=== PATIENT | female | born 1995 | race Caucasian/White ===

== ENCOUNTER 2019-07-12 11:56 | Observation (INO) ==
[2019-07-12] MEDS ORDERED: SODIUM CHLORIDE 0.9% 1000ML 2,000 ML IV ONE (12:17)
[2019-07-12] MEDS ORDERED: LORazepam 0.5 MG/1 ML VIAL IV STA (12:24)
[2019-07-12 12:37] LABS: Basophils # (auto) 0.01 K/uL (0-0.2); Basophils % (auto) 0.1 %; Eosinophils # (auto) 0.03 K/uL (0-0.5); Eosinophils % (auto) 0.4 %; Hematocrit (blood only) 43.4 % (37-47); Hemoglobin 15.2 g/dL (12.0-16.0); Immature Granulocytes # (auto) 0.01 K/uL (0.00-0.02); Immature Granulocytes % (auto) 0.1 %; Lymphocytes # (auto) 0.86 K/uL (1.2-3.4); Lymphocytes % (auto) 11.2 %; Mean Corpuscular Hemoglobin 30.7 pg (25-34); Mean Corpuscular Volume 87.7 fL (80-100); Mean Platelet Volume 9.4 fL (7.4-10.4); Monocytes # (auto) 0.26 K/uL (0.11-0.59); Monocytes % (auto) 3.4 %; Neutrophils # (auto) 6.52 K/uL (1.4-6.5); Neutrophils % (auto) 84.8 %; Platelet Count 308 K/uL (130-400); RDW Coefficient of Variation 12.5 % (11.5-14.5); RDW Standard Deviation 39.9 fL (36.4-46.3); Red Blood Count 4.95 M/uL (4.2-5.4); White Blood Count 7.69 K/uL (4.8-10.8)
--- NOTE | 2019-07-12 12:38 | XRay Report ---
XR chest 1V portable CLINICAL HISTORY: Atypical chest pain COMPARISON STUDY: 07/14/2014 FINDINGS: The cardiac and mediastinal contours are normal. There is no evidence of focal pulmonary co nsolidation. There is no evidence of failure. No pleural effusions are visualized.[ IMPRESSION: No active disease in the chest. ACT 112: Negative or not required by law. Electronically signed by: Surjit Irene M.D. 07/12/2019 12:37 PM
[2019-07-12 12:46] LABS: D Dimer < 190 ug/L FEU (0-500)
[2019-07-12 12:57] LABS: Alanine Aminotransferase 18 U/L (12-78); Albumin Level 4.4 gm/dl (3.4-5.0); Aspartate Aminotransferase 13 U/L (15-37); BUN Creatinine Ratio 20.1 (10-20); Blood Urea Nitrogen 16 mg/dl (7-18); Calcium 9.6 mg/dl (8.5-10.1); Carbon Dioxide 24 mmol/L (21-32); Chloride 106 mmol/L (98-107); Creatinine Clr Calc Pharmacy 96.4 ml/min; Est GFR (Non-African American) 109.6; Glucose 91 mg/dl (70-99); Lipase 67 U/L (73-393); Magnesium 2.3 mg/dl (1.8-2.4); Sodium 137 mmol/L (136-145)
[2019-07-12 13:04] LABS: Pregnancy Test, Serum Negative (Negative)
[2019-07-12 13:08] LABS: Albumin Globulin Ratio 1.2 (0.9-2); Alkaline Phosphatase 77 U/L (45-117); Bilirubin,Total 2.4 mg/dl (0.2-1); Globulin 3.7 gm/dl (2.5-4.0); Phosphorus 2.7 mg/dl (2.5-4.9); Thyroid Stimulating Hormone 0.845 uIu/ml (0.300-4.500); Total Protein 8.1 gm/dl (6.4-8.2); Troponin I < 0.015 ng/ml (0-0.045)
[2019-07-12] MEDS ORDERED: GI COCKTAIL ED USE PO ONE (13:23)
[2019-07-12] MEDS ORDERED: LORazepam 1 MG TAB SL STA ×2 (14:09→14:41)
[2019-07-12] MEDS ORDERED: SODIUM CHLORIDE 0.9% 1000ML 1,000 ML IV ONE (14:27)
[2019-07-12 14:35] LABS: Bilirubin Direct 0.3 mg/dl (0-0.2)
--- NOTE | 2019-07-12 20:25 | History & Physical Report ---
Date of Service July 12, 2019 Assessment & Plan (1) Atypical chest pain: Admits to PCU on telemetry. Monitor vital signs every 4 hours Follow-up troponin x3 with EKG TTE pending Consult cardiology for nonspecific T wave changes DVT prophylaxis teds and SCDs Gentle IV fluid hydration Full code Present on Admission?: Yes (2) Gastroesophageal reflux disease: Continue famotidine 20 mg p.o. daily as needed Present on Admission?: Yes (3) Multiple sclerosis: We will consult [facility] neurology. Dr. Romero is patient primary neurologist. We will consult neurologist on-call. Hold ocrelizumab 30 mg IV every 6 hours. Present on Admission?: Yes History of Present Illness Chief Complaint: Chest pain Primary Care Provider: Perfecto Anderson DO The patient is a 24 years old female who was recently diagnosed in April 2018 with multiple sclerosis and started on treatment with Ocrevus in early June. Patient already had 2 treatments and the last treatment being 1 week ago. Patient is treated by neurologist at [facility]. Patient describes palpitations and chest pain that was so severe that she had to lay down on the floor to be able to bear the pain. Patient states that nothing helps with her pain. She admits having anxiety disorder but this what occurred yesterday and today was different. Patient states that chest was crushing and lasted for more than 30 minutes. Patient states that chest pain was intermittent. It did not radiate anywhere. Patient denies any substance abuse. Patient denies drinking coffee or use of power drinks. Patient denies fever, chills, abdominal pain, shortness of breath, frequency, urgency. EKG shows sinus tachycardia 128 bpm with nonspecific T wave abnormalities in the inferior and anterolateral leads. Labs are reviewed: Sodium 137, potassium 4, chloride 106, carbon dioxide 24, anion gap 7, BUN 16, creatinine 0.77, GFR 109.6, glucose 91, calcium 9.6, phosphorus 2.7, magnesium 2.3, total bilirubin 2.4, direct bilirubin 0.3, AST 13, ALT 18, alkaline phosphatase 77, troponin 0.015, total protein 8.1, albumin 4.4, globulin 3.7, TSH 0.845, beta-hCG negative. Chest x- ray shows the cardiac and mediastinal contours are normal. There is no evidence of focal pulmonary consolidation. There is no evidence of failure. No pleural effusion are visualized no active disease in the chest. I decision was made to admit patient for observation for the chest pain and to rule out acute coronary syndrome. Allergies Allergy/AdvReac Type Severity Reaction Status Date / Time No Known Drug Allergies AdvReac Unknown Verified 07/12/19 12:43 Home Medications Home Medications Medication Instructions Recorded Confirmed Type famotidine 20 mg PO DAILY PRN 04/25/19 07/12/19 History ocrelizumab [Ocrevus] 30 mg IV Q6M 07/12/19 07/12/19 History prochlorperazine maleate 10 mg PO QID PRN #14 tab 07/12/19 Rx Past Med/Surg History Medical History Anxiety (Acute) Panic attacks (Acute) Surgical History [place] teeth removed (Acute) Social History Preferred Language: Samoan Feels Safe at Home: Yes Smoking Status: Never smoker Review of Systems Review of Systems: All systems reviewed & are unremarkable except as noted in HPI & below Physical Exam Constitutional: WD/WN, vitals as above well developed and + ill appearing Eyes: PERRL, conjunctivae normal, anicteric sclerae ENMT: external ear and nose normal, oropharynx normal Neck: trachea midline, no thyromegaly Respiratory: normal respiratory effort, lungs clear to auscultation Cardiovascular: Rate/Rhythm: + tachycardic Heart Sounds: normal S1 and normal S2 Vessels: dorsalis pedis pulses present Gastrointestinal (Abdomen): normal bowel sounds, soft, nontender, no hepatosplenomegaly Musculoskeletal: no cyanosis or clubbing, extremities motor strength 5/5 Skin: no rashes, warm and dry Neurologic: patellar DTR's 2+ bilat, sensation intact Psychiatric: A+Ox3, euthymic affect Lymphatic: no cervical or axillary lymphadenopathy Results & Data Vital Signs (Past 12 Hours) Vital Signs Temp Pulse Pulse Resp BP BP Pulse Ox 07/12/19 19:00 119 H 23 108/66 99 07/12/19 18:30 128 H 24 114/65 99 07/12/19 18:00 118 H 22 113/63 98 07/12/19 17:30 119 H 23 117/65 98 07/12/19 17:00 133 H 25 H 113/67 99 07/12/19 16:30 134 H 24 116/71 99 07/12/19 15:30 117 H 20 120/83 100 07/12/19 15:00 118 H 25 H 123/74 100 07/12/19 14:30 124 H 23 121/75 99 07/12/19 14:04 22 120/72 100 07/12/19 13:30 111 H 23 120/79 100 07/12/19 13:00 110 H 16 119/79 100 07/12/19 12:41 99 H 26 H 134/71 100 07/12/19 12:40 101 H 17 134/71 100 07/12/19 12:39 100 07/12/19 11:58 36.4 C L 121 H 18 124/81 99 Code Status & VTE Plan Code Status Full code VTE Prophylaxis Plan VTE Prophylaxis will be ordered: Yes PG Care Time/CCT Total # of Minutes Spent Total Time Spent with Patient: Total time spent is greater than 50% in coordination of care (as documented) at patient's floor/unit and/or counseling patient: (1) Gastroesophageal reflux disease Esophagitis presence: without esophagitis Qualified Code(s): K21.9 - Gastro- esophageal reflux disease without esophagitis
--- NOTE | 2019-07-12 20:56 | Emergency Department Note ---
Entered by Vannesa Sun acting as a scribe for Ulices Cai MD History of Present Illness General Chief complaint: Chest Pain Stated complaint: nausea - dizzy - chest pain - Time Seen by Provider: 07/12/19 12:07 Source: patient and family History of Present Illness Provider complaint: chest pain Onset (ago): day(s) 1 Location: chest Maximum Pain Intensity: 7 Quality: + other (pressure) Relieved By: + none Associated symptoms: + nausea/vomiting (+nausea, -vomiting) and + other (- urinary symptoms, +lightheadedness, +abdominal pain) The patient is a 24 year old female who presents to the Emergency Room with complaints of chest pain which worsened last night. The patient reports that she was diagnosed with MS in April and was placed on Prednisone. She reports that she has been experiencing chest pressure since. She notes that last night her pain worsened. She states that she had nausea and felt lightheaded. The patient states that she feels that her heart has been beating different since April and it became more prominent last night. She reports that she has a history of reflux and panic attacks. She states that she had fries last night several hours before bed. The patient mentions that she was experiencing abdominal pain 2 day ago. She denies any vomiting or urinary symptoms. She denies any previous blood clots. The patients mother reports that she was recently placed on new medications for MS 2 weeks ago. Home Medications Home Medications Medication Instructions Recorded Confirmed Type famotidine 20 mg PO DAILY PRN 04/25/19 07/12/19 History ocrelizumab [Ocrevus] 30 mg IV Q6M 07/12/19 07/12/19 History prochlorperazine maleate 10 mg PO QID PRN #14 tab 07/12/19 Rx Allergies Allergy/AdvReac Type Severity Reaction Status Date / Time No Known Drug Allergies AdvReac Unknown Verified 07/12/19 12:43 Past Med/Surg History Medical History Anxiety (Acute) Panic attacks (Acute) Surgical History [place] teeth removed (Acute) Family History Other Coronary heart disease Social History Preferred Language: Divehi Feels Safe at Home: Yes Smoking Status: Never smoker Review of Systems See HPI for pertinent positives & negatives. and A total of 10 systems reviewed and were otherwise negative Physical Exam Vital Signs Vital Signs - 24 hr 07/12/19 11:58 07/12/19 12:39 07/12/19 12:40 Temperature 36.4 C L Temperature Source Oral Pulse Rate 121 H 101 H Pulse Rate [Apical] Pulse Rate from SpO2 Sensor 104 H Respiratory Rate 18 17 Respiratory Effort / Characteristics Non-Labored Spontaneous Respiratory Depth Normal Respiratory Pattern Regular Blood Pressure 124/81 134/71 Blood Pressure [Left Arm] Blood Pressure Mean 95 92 Blood Pressure Mean [Left Arm] Blood Pressure Position Sitting Pulse Oximetry 99 100 100 Oxygen Delivery Method Room Air Room Air Sepsis Recent Fever Within 48 Hours No Sepsis New/Unexplained Change in Mental Status No Sepsis Action Taken by Nursing No Action Required 07/12/19 12:41 07/12/19 13:00 07/12/19 13:30 Temperature Temperature Source Pulse Rate 110 H 111 H Pulse Rate [Apical] 99 H Pulse Rate from SpO2 Sensor 109 H 111 H Respiratory Rate 26 H 16 23 Respiratory Effort / Characteristics Respiratory Depth Respiratory Pattern Blood Pressure 119/79 120/79 Blood Pressure [Left Arm] 134/71 Blood Pressure Mean 87 93 Blood Pressure Mean [Left Arm] 92 Blood Pressure Position Pulse Oximetry 100 100 100 Oxygen Delivery Method Room Air Sepsis Recent Fever Within 48 Hours Sepsis New/Unexplained Change in Mental Status Sepsis Action Taken by Nursing 07/12/19 14:04 07/12/19 14:30 07/12/19 15:00 Temperature Temperature Source Pulse Rate 124 H 118 H Pulse Rate [Apical] Pulse Rate from SpO2 Sensor 126 H 127 H 120 H Respiratory Rate 22 23 25 H Respiratory Effort / Characteristics Respiratory Depth Respiratory Pattern Blood Pressure 120/72 121/75 123/74 Blood Pressure [Left Arm] Blood Pressure Mean 86 88 84 Blood Pressure Mean [Left Arm] Blood Pressure Position Pulse Oximetry 100 99 100 Oxygen Delivery Method Sepsis Recent Fever Within 48 Hours Sepsis New/Unexplained Change in Mental Status Sepsis Action Taken by Nursing 07/12/19 15:30 07/12/19 16:30 07/12/19 17:00 Temperature Temperature Source Pulse Rate 117 H 134 H 133 H Pulse Rate [Apical] Pulse Rate from SpO2 Sensor 114 H 133 H 132 H Respiratory Rate 20 24 25 H Respiratory Effort / Characteristics Respiratory Depth Respiratory Pattern Blood Pressure 120/83 116/71 113/67 Blood Pressure [Left Arm] Blood Pressure Mean 90 79 74 Blood Pressure Mean [Left Arm] Blood Pressure Position Pulse Oximetry 100 99 99 Oxygen Delivery Method Sepsis Recent Fever Within 48 Hours Sepsis New/Unexplained Change in Mental Status Sepsis Action Taken by Nursing 07/12/19 17:30 07/12/19 18:00 07/12/19 18:30 Temperature Temperature Source Pulse Rate 119 H 118 H 128 H Pulse Rate [Apical] Pulse Rate from SpO2 Sensor 119 H 117 H Respiratory Rate 23 22 24 Respiratory Effort / Characteristics Respiratory Depth Respiratory Pattern Blood Pressure 117/65 113/63 114/65 Blood Pressure [Left Arm] Blood Pressure Mean 81 71 81 Blood Pressure Mean [Left Arm] Blood Pressure Position Pulse Oximetry 98 98 99 Oxygen Delivery Method Room Air Sepsis Recent Fever Within 48 Hours Sepsis New/Unexplained Change in Mental Status Sepsis Action Taken by Nursing 07/12/19 19:00 07/12/19 19:30 07/12/19 20:00 Temperature Temperature Source Pulse Rate 119 H 126 H 123 H Pulse Rate [Apical] Pulse Rate from SpO2 Sensor Respiratory Rate 23 20 23 Respiratory Effort / Characteristics Respiratory Depth Respiratory Pattern Blood Pressure 108/66 109/61 101/68 Blood Pressure [Left Arm] Blood Pressure Mean 82 73 81 Blood Pressure Mean [Left Arm] Blood Pressure Position Pulse Oximetry 99 100 99 Oxygen Delivery Method Room Air Sepsis Recent Fever Within 48 Hours Sepsis New/Unexplained Change in Mental Status Sepsis Action Taken by Nursing GENERAL: Awake, alert, anxious appearing, in no distress HENT: Normocephalic, atraumatic. Oropharynx with dry mucous membranes and otherwise unremarkable. . EYES: Normal conjunctiva. Sclera non-icteric. NECK: Supple. No nuchal rigidity. FROM. No JVD. RESPIRATORY: CTAB CARDIAC: Tachycardic rate, normal rhythm. Extremities warm and well perfused. Pulses equal. ABDOMEN: Soft, non-distended. Mild epigastric discomfort without discrete tenderness to palpation. No rebound or guarding. No masses. RECTAL: Deferred. MUSCULOSKELETAL: Chest examination reveals no tenderness. The back is symmetrical on inspection without obvious abnormality. There is no CVA tenderness to palpation. No joint edema. LOWER EXTREMITIES: Calves are equal size bilaterally and non-tender. No edema. No discoloration. NEURO: Normal sensorium. No sensory or motor deficits noted. SKIN: No rash or jaundice noted. Course Course 1211: The patient was evaluated in room C10, and a complete history and physical examination were performed. 1355: Upon reevaluation, the patient appeared to have improvement of her symptoms. I discussed today's findings with her. She verbalized agreement of the treatment plan. She was discharged home. 181: I reviewed the patient's case with Dr. Romero- [facility] Hospitalist. He will evaluate the patient for further management. Administered Medications Discontinued Medications Al Hydrox/Mg Hydrox/Simethicone () 1 dose PO ONE ONE Stop: 07/12/19 13:24 Last Admin: 07/12/19 13:45 Dose: 1 dose Documented by: [id number] Sodium Chloride (Nss 1000ml) 2,000 mls @ 999 mls/hr IV .Q2H1M ONE Stop: 07/12/19 14:17 Last Infusion: 07/12/19 14:37 Dose: 0 mls/hr Documented by: [id number] Admin: 07/12/19 12:36 Dose: 999 mls/hr Documented by: [id number] Lorazepam (Ativan) 0.5 mg in 1 mls @ 1 mls/min IV NOW STA Stop: 07/12/19 12:25 Last Admin: 07/12/19 12:37 Dose: 1 mls/min Documented by: [id number] Sodium Chloride (Nss 1000ml) 1,000 mls @ 999 mls/hr IV .Q1H1M ONE Stop: 07/12/19 15:27 Last Infusion: 07/12/19 15:48 Dose: 0 mls/hr Documented by: [id number] Admin: 07/12/19 14:47 Dose: 999 mls/hr Documented by: [id number] Lorazepam (Ativan) 0.5 mg SL NOW STA Stop: 07/12/19 14:10 Last Admin: 07/12/19 14:49 Dose: Not Given Documented by: [id number] Lorazepam (Ativan) 1 mg SL NOW STA Stop: 07/12/19 14:42 Last Admin: 07/12/19 14:47 Dose: 1 mg Documented by: [id number] Medical Decision Making Differential Diagnosis Differential diagnosis: Etiologies such as cardiac ischemia, aortic dissection, pulmonary embolism, pneumonia, pneumothorax, musculoskeletal, infections, pericarditis, myocarditis, esophageal rupture, gastrointestinal, as well as others were entertained. Medical Records Attestation: I reviewed the patient's medical records. Home Medications Current Medication List: was personally reviewed by me Laboratory Data Attestation: I reviewed the patient's lab results. Result diagrams: 07/12/19 12:30 07/12/19 12:30 Lab Results 07/12/19 07/12/19 07/12/19 Range/Units 12:30 12:30 12:30 WBC 7.69 (4.8-10.8) K/uL RBC 4.95 (4.2-5.4) M/uL Hgb 15.2 (12.0-16.0) g/dL Hct 43.4 (37-47) % MCV 87.7 (80-100) fL MCH 30.7 (25-34) pg MCHC 35.0 (32-36) g/dL RDW Std Deviation 39.9 (36.4-46.3) fL RDW Coeff of Magdy 12.5 (11.5-14.5) % Plt Count 308 (130-400) K/uL MPV 9.4 (7.4-10.4) fL Immature Gran % (Auto) 0.1 % Neut % (Auto) 84.8 % Lymph % (Auto) 11.2 % [place] % (Auto) 3.4 % Eos % (Auto) 0.4 % Baso % (Auto) 0.1 % Immature Gran # (Auto) 0.01 (0.00-0.02) K/uL Neut # (Auto) 6.52 H (1.4-6.5) K/uL Lymph # (Auto) 0.86 L (1.2-3.4) K/uL [place] # (Auto) 0.26 (0.11-0.59) K/uL Eos # (Auto) 0.03 (0-0.5) K/uL Baso # (Auto) 0.01 (0-0.2) K/uL D-Dimer < 190 (0-500) ug/L FEU Sodium 137 (136-145) mmol/L Potassium 4.0 (3.5-5.1) mmol/L Chloride 106 (98-107) mmol/L Carbon Dioxide 24 (21-32) mmol/L Anion Gap 7.0 (3-11) BUN 16 (7-18) mg/dl Creatinine 0.77 (0.6-1.2) mg/dl Est Cr Clr Drug Dosing 96.4 ml/min Est GFR ( Amer) 127.0 Est GFR (Non-Af Amer) 109.6 BUN/Creatinine Ratio 20.1 H (10-20) Glucose 91 (70-99) mg/dl Calcium 9.6 (8.5-10.1) mg/dl Phosphorus 2.7 (2.5-4.9) mg/dl Magnesium 2.3 (1.8-2.4) mg/dl Total Bilirubin 2.4 H (0.2-1) mg/dl Direct Bilirubin 0.3 H (0-0.2) mg/dl AST 13 L (15-37) U/L ALT 18 (12-78) U/L Alkaline Phosphatase 77 (45-117) U/L Troponin I < 0.015 (0-0.045) ng/ml Total Protein 8.1 (6.4-8.2) gm/dl Albumin 4.4 (3.4-5.0) gm/dl Globulin 3.7 (2.5-4.0) gm/dl Albumin/Globulin Ratio 1.2 (0.9-2) Lipase 67 L (73-393) U/L TSH 0.845 (0.300-4.500) uIu/ml HCG, Qual (Negative) 07/12/19 Range/Units 12:30 WBC (4.8-10.8) K/uL RBC (4.2-5.4) M/uL Hgb (12.0-16.0) g/dL Hct (37-47) % MCV (80-100) fL MCH (25-34) pg MCHC (32-36) g/dL RDW Std Deviation (36.4-46.3) fL RDW Coeff of Magdy (11.5-14.5) % Plt Count (130-400) K/uL MPV (7.4-10.4) fL Immature Gran % (Auto) % Neut % (Auto) % Lymph % (Auto) % [place] % (Auto) % Eos % (Auto) % Baso % (Auto) % Immature Gran # (Auto) (0.00-0.02) K/uL Neut # (Auto) (1.4-6.5) K/uL Lymph # (Auto) (1.2-3.4) K/uL [place] # (Auto) (0.11-0.59) K/uL Eos # (Auto) (0-0.5) K/uL Baso # (Auto) (0-0.2) K/uL D-Dimer (0-500) ug/L FEU Sodium (136-145) mmol/L Potassium (3.5-5.1) mmol/L Chloride (98-107) mmol/L Carbon Dioxide (21-32) mmol/L Anion Gap (3-11) BUN (7-18) mg/dl Creatinine (0.6-1.2) mg/dl Est Cr Clr Drug Dosing ml/min Est GFR ( Amer) Est GFR (Non-Af Amer) BUN/Creatinine Ratio (10-20) Glucose (70-99) mg/dl Calcium (8.5-10.1) mg/dl Phosphorus (2.5-4.9) mg/dl Magnesium (1.8-2.4) mg/dl Total Bilirubin (0.2-1) mg/dl Direct Bilirubin (0-0.2) mg/dl AST (15-37) U/L ALT (12-78) U/L Alkaline Phosphatase (45-117) U/L Troponin I (0-0.045) ng/ml Total Protein (6.4-8.2) gm/dl Albumin (3.4-5.0) gm/dl Globulin (2.5-4.0) gm/dl Albumin/Globulin Ratio (0.9-2) Lipase (73-393) U/L TSH (0.300-4.500) uIu/ml HCG, Qual Negative (Negative) Imaging Data Radiologist's Impression: Radiology results as stated below per my review and the radiologist's interpretation: XR chest 1V portable CLINICAL HISTORY: Atypical chest pain COMPARISON STUDY: 07/14/2014 FINDINGS: The cardiac and mediastinal contours are normal. There is no evidence of focal pulmonary consolidation. There is no evidence of failure. No pleural effusions are visualized.[ IMPRESSION: No active disease in the chest. ACT 112: Negative or not required by law. Electronically signed by: Surjit Irnee M.D. 07/12/2019 12:37 PM ECG Data Attestation: I personally reviewed and interpreted this ECG as follows: Indication: + chest pain Rate (beats per minute): 109 Rhythm: + sinus tachycardia ECG Intervals/blocks: + Normal QRS (78) and + Normal QT-c (452) ECG [place]: + Normal ECG ST segments: no ST depression and no ST elevation Blood Pressure Blood Pressure Findings: Low blood pressure Blood Pressure Disposition: did not require urgent referral MDM Narrative The patient is a pleasant 24-year-old woman with a past medical history of diagnosis of MS recently initiating monoclonal antibody treatment with injection in June and again last week as well as a 5-day high-dose oral steroid course in April upon her diagnosis now with worsening of her constant chest pain with associated nausea, lightheadedness per HPI. Patient reports having increased indigestion and burping since her steroid course associated with her chest pain for which she has been put on Pepcid. However she does not feel her symptoms today are related to her reflux. On arrival the patient is uncomfortable in no acute distress, afebrile with heart rate in the 120s and otherwise with stable vital signs. Patient is anxious appearing. She is clinically dry appearing. Abdomen is benign with mild epigastric discomfort without discrete tenderness. Negative Bacon sign. EKG without overt acute ischemia. Chest x-ray negative for acute process. WBC, H/H and platelets within normal limits. Chemistry without acidosis. Total bilirubin 2.4 with direct bilirubin of 0.3. Otherwise, electrolytes and LFTs unremarkable. Troponin negative/undetectable. D-dimer negative. TSH within normal limits. The patient was given IV fluid hydration, Ativan and Pepcid with GI cocktail with subsequent improvement in her heart rate to the 90s-100s and while she did report persistence of her chest pain she did feel this was improved back to her chronic sensation she has felt for the past month. The patient was being pr epared for discharge however heart rate then became elevated again to the 130s and so she was reevaluated with repeat EKG which demonstrates sinus tachycardia. She was given IV fluid hydration and additional Ativan with eventual improvement in heart rate but still labile with heart rate in the 110s but easily increasing to the 120s even while sleeping. Did discuss the case with Dr. Morales, [facility] neurology on-call as we were unable to contact the patient's primary neurologist, Dr. Ruelas. The persistent of her symptoms with associated continued sinus tachycardia we agree reasonable to admit the patient for further monitoring. Suggest likely would benefit from GI consultation given her symptoms did begin after her high-dose oral steroid which could have provoked esophagitis. Patient with considerations could be pain related to her previously identified thoracic MS lesions seen on MRI. Case was discussed with Dr. Romero, [facility] hospitalist, who evaluate the patient for admission. Observation note: Indication: Chest pain Patient, with Family History CAD, was first seen at 1200 hrs and the observation time began at 1200 hrs and was necessary in order to determine movement and symptoms and response to treatment and avoid unnecessary admission . Upon re- evaluation, 6 hours of observation revealed that the patient should be admitted for further monitoring and evaluation of her symptoms. Disposition date and time 07/12/2019 @ 1800. Impression & Plan Atypical chest pain, Gastroesophageal reflux disease, Multiple sclerosis, Sinus tachycardia Discharge Plan Visit Data Chief Complaint: Chest Pain Stated Complaint: nausea - dizzy - chest pain - ED Provider: Ulices Cai Discharge Problem: Atypical chest pain, Gastroesophageal reflux disease, Multiple sclerosis, Sinus tachycardia Patient Disposition: Being Evaluated by Hospitalist Condition: Good Discharge Instructions Krames/Other Patient Handouts: Anxiety Body Response, ED Chest Pain Atypical Unkn Cause, ED Hyperventilation Syndrome, ED Panic Attack Activity Restrictions/Additional Instructions: Please follow up with your primary care physician in the next 1-3 days for re- evaluation. The cause of your symptoms is not definitive at this time but could be related to acid reflux as well as a component of your history of anxiety. Otherwise, your exam, EKG, chest xray, and lab results including a negative/undetectable troponin (heart enzyme) and negative d-dimer did not show signs of an emergent condition at this time. Continue your Pepcid as prescribed. [id number] Mylanta for additional acid relief as needed. Compazine as needed for nausea. Drink plenty of fluids to ensure hydration. Return to the emergency department for worsening symptoms as described in the accompanying instructions. Prescriptions Prescriptions: New prochlorperazine maleate 10 mg tablet 10 mg PO QID PRN (Reason: nausea and vomiting) Qty: 14 RF: 0 No Action famotidine 20 mg Tablet 20 mg PO DAILY PRN (Reason: Gi Upset) RF: 0 Ocrevus 30 mg/mL Solution 30 mg IV Q6M RF: 0 Referrals Referrals: Perfecto Anderson DO [Primary Care Provider] - Discharge Problem: Gastroesophageal reflux disease Qualifiers: Esophagitis presence: without esophagitis Qualified Code(s): K21.9 - Gastro- esophageal reflux disease without esophagitis The scribe's documentation has been prepared under my direction and personally reviewed by me in its entirety. I confirm that the note above accurately reflects all work, treatment, procedures, and medical decision making performed by me.
[2019-07-12] MEDS ORDERED: ONDANSETRON INJ 2 MG/ML 2 ML VIAL IV PRN (21:26)
[2019-07-12] MEDS ORDERED: POLYETHYLENE (MIRALAX) 17 GM PACK PO PRN (21:26)
[2019-07-12] MEDS ORDERED: ALUMINUM/MAGNESIUM SUSP 30 ML UDC PO PRN (21:26)
[2019-07-12] MEDS ORDERED: OCRELIZUMAB IV SCH (21:26)
[2019-07-12] MEDS ORDERED: NITROGLYCERIN SL 0.4 MG/TAB TAB SL PRN (21:26)
[2019-07-12] MEDS ORDERED: FAMOTIDINE 20 MG TAB PO PRN (21:26)
[2019-07-12] MEDS ORDERED: MAGNESIUM HYDROXIDE SUSP 30 ML UDC PO PRN (21:26)
[2019-07-12] MEDS ORDERED: LORazepam 1 MG TAB PO PRN (21:26)
[2019-07-12] MEDS ORDERED: ACETAMINOPHEN 325 MG TAB PO PRN (21:26)
[2019-07-12] MEDS: SODIUM CHLORIDE 0.9% 1000ML 1,000 ML IV SCH (22:33)
[2019-07-12] MEDS: ASPIRIN 81 MG ECTAB PO SCH (22:33)
--- NOTE | 2019-07-12 23:36 | Electrocardiogram Report ---
Test Reason : Blood Pressure : / mmHG Vent. Rate : 109 BPM Atrial Rate : 109 BPM P-R Int : 132 ms QRS Dur : 078 ms QT Int : 336 ms P-R-T Axes : 069 085 054 degrees QTc Int : 452 ms Sinus tachycardia Possible Left atrial enlargement Borderline ECG No previous ECGs available Confirmed by Tigre Walker ([id number]) on 07/12/2019 11:36:06 PM Referred By: Confirmed By:Tigre Walker
--- NOTE | 2019-07-12 23:39 | Electrocardiogram Report ---
Test Reason : Blood Pressure : / mmHG Vent. Rate : 128 BPM Atrial Rate : 128 BPM P-R Int : 146 ms QRS Dur : 072 ms QT Int : 304 ms P-R-T Axes : 060 076 052 degrees QTc Int : 443 ms Sinus tachycardia Possible Left atrial enlargement Nonspecific T wave abnormality Abnormal ECG When compared with ECG of 12-JUL-2019 12:07, Nonspecific T wave abnormality now evident in Inferior leads Nonspecific T wave abnormality now evident in Anterolateral leads Confirmed by Tigre Walker ([id number]) on 07/12/2019 11:38:44 PM Referred By: REFERRED SELF Confirmed By:Tigre Walker
[2019-07-13 03:23] LABS: Basophils # (auto) 0.01 K/uL (0-0.2); Basophils % (auto) 0.2 %; Eosinophils # (auto) 0.09 K/uL (0-0.5); Eosinophils % (auto) 2.1 %; Hematocrit (blood only) 38.4 % (37-47); Hemoglobin 12.9 g/dL (12.0-16.0); Immature Granulocytes # (auto) 0.02 K/uL (0.00-0.02); Immature Granulocytes % (auto) 0.5 %; Lymphocytes # (auto) 1.63 K/uL (1.2-3.4); Lymphocytes % (auto) 37.3 %; Mean Corpuscular Hemoglobin 30.1 pg (25-34); Mean Corpuscular Hgb Conc 33.6 g/dL (32-36); Mean Corpuscular Volume 89.7 fL (80-100); Monocytes # (auto) 0.77 K/uL (0.11-0.59); Monocytes % (auto) 17.6 %; Neutrophils # (auto) 1.85 K/uL (1.4-6.5); Neutrophils % (auto) 42.3 %; Platelet Count 268 K/uL (130-400); RDW Coefficient of Variation 12.6 % (11.5-14.5); RDW Standard Deviation 40.9 fL (36.4-46.3); Red Blood Count 4.28 M/uL (4.2-5.4); White Blood Count 4.37 K/uL (4.8-10.8)
[2019-07-13 04:02] LABS: Alanine Aminotransferase 16 U/L (12-78); Aspartate Aminotransferase 10 U/L (15-37); BUN Creatinine Ratio 8.3 (10-20); Bilirubin,Total 1.2 mg/dl (0.2-1); Blood Urea Nitrogen 5 mg/dl (7-18); Calcium 8.4 mg/dl (8.5-10.1); Carbon Dioxide 27 mmol/L (21-32); Chloride 110 mmol/L (98-107); Creatinine Clr Calc Pharmacy 118.8 ml/min; Est GFR (African American) 146.8; Est GFR (Non-African American) 126.7; Glucose 98 mg/dl (70-99); Potassium 3.9 mmol/L (3.5-5.1); Sodium 138 mmol/L (136-145); Troponin I < 0.015 ng/ml (0-0.045)
[2019-07-13 04:03] LABS: Albumin Level 3.3 gm/dl (3.4-5.0); Alkaline Phosphatase 67 U/L (45-117); Globulin 3.2 gm/dl (2.5-4.0); Total Protein 6.5 gm/dl (6.4-8.2)
[2019-07-13] MEDS: ASPIRIN 81 MG ECTAB PO SCH (08:31)
[2019-07-13] MEDS: SODIUM CHLORIDE 0.9% 1000ML 1,000 ML IV SCH (08:31)
--- NOTE | 2019-07-13 08:33 | Cardiology Consultation ---
Date of Consultation July 13, 2019 History of Present Illness Attending Physician: Salomón Akers MD History of Present Illness Patient is a 24-year-old female with a past medical history significant for multiple sclerosis and anxiety who presented to [facility] ER complaining of atypical chest pain and palpitations. Patient notes that she was originally started on steroid therapy for her recently diagnosed multiple sclerosis and then started Ocrevus and she is noted since that time she is been having increasing palpitation and racing heart. She noted associated chest discomfort which is what prompted her to come to the emergency department. She noted the chest pain lasted approximately 30 minutes. She is noted episodes of chest pain and palpitations together since her diagnosis. She denied any pleuritic type chest pain or associated symptoms. She denied any aggravating or alleviating factors. She denied any exertional component of the chest discomfort. Her biggest concern today was the palpitations. She attributes it mainly to taking the medications for her multiple sclerosis which she is seen by neurology at [facility]. She denied any lightheadedness dizziness or family history of cardiac disease. At the time of consultation she was resting comfortably with no new complaints. Allergies Allergy/AdvReac Type Severity Reaction Status Date / Time No Known Drug Allergies AdvReac Unknown Verified 07/12/19 12:43 Home Medications Home Medications Medication Instructions Recorded Confirmed Type famotidine 20 mg PO DAILY PRN 04/25/19 07/12/19 History ocrelizumab [Ocrevus] 30 mg IV Q6M 07/12/19 07/12/19 History prochlorperazine maleate 10 mg PO QID PRN #14 tab 07/12/19 Rx Patient History Medical History Anxiety (Acute) Panic attacks (Acute) Surgical History Mchenry teeth removed (Acute) Family History Other Coronary heart disease Social History Preferred Language: Bengali Communication Ability: Effective Forensic Locksmith Required: No Current Living Situation: Family Feels Safe at Home: Yes Smoking Status: Unknown if ever smoked Hx Alcohol Use: No Hx Substance Use: No Review of Systems Review of Systems: All systems reviewed & are unremarkable except as noted in HPI & below Results & Data Vital Signs (Past 12 Hours) Vital Signs Temp Pulse Pulse Resp BP BP BP 07/13/19 07:04 36.6 C 92 H 18 102/67 07/13/19 05:25 37 C 95 H 18 103/60 07/13/19 00:12 36.7 C 101 H 16 106/63 07/12/19 21:22 36.8 C 119 H 16 102/67 07/12/19 21:00 122 H 20 110/65 Pulse Ox 07/13/19 07:04 98 07/13/19 05:25 97 07/13/19 00:12 98 1. 07/12/19 21:22 98 07/12/19 21:00 97 Impression : 1. Atypical chest pain 2. Palpitations 3. MS 4. Abnormal EKG noting nonspecific T wave abnormality in inferior and anterolateral leads Plan : Obtain TTE await results before making further recs. Obtain follow-up EKG noting non-specific T wave abnormality which can be a normal variant and seen in anxiety/hyperventilation or with stress as well.Agree with IVF. Trop. negative. Can be seen as outpatient for further cardiac follow-up which will include an outpatient monitor. If echo is negative, the patient can be discharged with follow-up as an outpatient.Thank you for allowing me to participate in her care and call with any questions.
[2019-07-13] MEDS ORDERED: ASPIRIN 81 MG ECTAB PO SCH (09:00)
--- NOTE | 2019-07-16 16:15 | Discharge Summary ---
Date of Service July 13, 2019 Admission HPI Per Admitting Provider The patient is a 24 years old female who was recently diagnosed in April 2018 with multiple sclerosis and started on treatment with Ocrevus in early June. Patient already had 2 treatments and the last treatment being 1 week ago. Patient is treated by neurologist at [facility]. Patient describes palpitations and chest pain that was so severe that she had to lay down on the floor to be able to bear the pain. Patient states that nothing helps with her pain. She admits having anxiety disorder but this what occurred yesterday and today was different. Patient states that chest was crushing and lasted for more than 30 minutes. Patient states that chest pain was intermittent. It did not radiate anywhere. Patient denies any substance abuse. Patient denies drinking coffee or use of power drinks. Patient denies fever, chills, abdominal pain, shortness of breath, frequency, urgency. EKG shows sinus tachycardia 128 bpm with nonspecific T wave abnormalities in the inferior and anterolateral leads. Labs are reviewed: Sodium 137, potassium 4, chloride 106, carbon dioxide 24, anion gap 7, BUN 16, creatinine 0.77, GFR 109.6, glucose 91, calcium 9.6, phosphorus 2.7, magnesium 2.3, total bilirubin 2.4, direct bilirubin 0.3, AST 13, ALT 18, alkaline phosphatase 77, troponin 0.015, total protein 8.1, albumin 4.4, globulin 3.7, TSH 0.845, beta-hCG negative. Chest x- ray shows the cardiac and mediastinal contours are normal. There is no evidence of focal pulmonary consolidation. There is no evidence of failure. No pleural effusion are visualized no active disease in the chest. I decision was made to admit patient for observation for the chest pain and to rule out acute coronary syndrome. Admission Exam Per Admitting Provider Constitutional: WD/WN, vitals as above well developed and + ill appearing Eyes: PERRL, conjunctivae normal, anicteric sclerae ENMT: external ear and nose normal, oropharynx normal Neck: trachea midline, no thyromegaly Respiratory: normal respiratory effort, lungs clear to auscultation Cardiovascular: Rate/Rhythm: + tachycardic Heart Sounds: normal S1 and normal S2 Vessels: dorsalis pedis pulses present Gastrointestinal (Abdomen): normal bowel sounds, soft, nontender, no hepatosplenomegaly Musculoskeletal: no cyanosis or clubbing, extremities motor strength 5/5 Skin: no rashes, warm and dry Neurologic: patellar DTR's 2+ bilat, sensation intact Psychiatric: A+Ox3, euthymic affect Lymphatic: no cervical or axillary lymphadenopathy Principal Diagnosis Atypical chest pain Palpitations Sinus tachycardia Discharge Exam Constitutional WD/WN, vitals as above Eyes + anicteric sclerae; normal pupil size ENMT external ear and nose normal, oropharynx normal Neck trachea midline, no thyromegaly Respiratory normal respiratory effort, lungs clear to auscultation Cardiovascular Rate/Rhythm: + tachycardic Heart Sounds: normal S1 and normal S2; no murmur Extremities: normal capillary refill; no calf tenderness and no pedal edema Gastrointestinal (Abdomen) normal bowel sounds, soft, nontender, no hepatosplenomegaly Musculoskeletal no cyanosis or clubbing, extremities motor strength 5/5 Skin no rashes, warm and dry Neurologic moves all extremities and awake; no focal motor deficits and not confused Speech / Cognition: normal speech Motor/Sensory: no tremor and no pronator drift Psychiatric A+Ox3, euthymic affect Discharge Data Allergies Allergy/AdvReac Type Severity Reaction Status Date / Time No Known Drug Allergies AdvReac Unknown Verified 07/12/19 12:43 Consultations 07/12/19 18:12 ED Decision to Admit Stat 07/12/19 21:26 Consult Cardiology Routine Ordered Studies Echocardiogram Interpretation Summary: 1. Normal left ventricular size and systolic function. EF 60-65%. No regional wall motion abnormalities. No left ventricular hypertrophy. No significant diastolic dysfunction. 2. No significant valvular abnormalities. 3. Normal estimated right ventricular systolic pressure 4. No prior study available for comparison Hospital Course (1) Atypical chest pain: Champ Qiu is a 24 year old female with multiple sclerosis admitted overnight to [facility] for chest pain, palpitations, nausea and sweating episode. Serial troponins and subsequent echocardiogram were reassuringly normal. No abnormalities noted on telemetry however she also didn't have a recurrence of her palpitation episodes. She reports similar intermittent symptoms since she had steroids for her MS however on this occasion her episode appeared to much worse. She was reviewed by cardiology and will be followed up in clinic and potentially set up with a gift basket packer for further investigations of her skipped beats. Alternatively we discussed that her episode may have been due to esophageal spasm or anxiety. (2) Gastroesophageal reflux disease: (3) Multiple sclerosis: Total Time Total Time Spent Total Time Spent (In Minutes): 45 Total Time Includes: Examination of the Patient, Discharge Planning and Medication Reconciliation Discharge Plan Discharge Items Patient Disposition: Home - Self-Care Reason For Visit: CHEST PAIN,PALPITATIONS Discharge Diagnosis: Atypical chest pain Palpitations Sinus tachycardia Condition on Discharge: Good Activity: Resume your previous activity Non-emergency contact: Primary Care Provider Call non-emergency contact if: you have any medication questions Follow-up/Referrals: Perfecto Anderson DO [Primary Care Provider] - 07/19/19 10:10 am (Please, follow up with Dr. Perfecto Anderson on WednesdayJuly 19 at 10:10 am. *If you need to change this appointment, call the office at [phone].) Georges Hua DO [Physician] - (2-4 weeks) Diet: Regular Addtl Attending Provider Instructions: You were admitted overnight to [facility] for chest pain, palpitations, nausea and sweating episode. Heart enzymes were reassuringly negative therefore this was not a heart attack. No abnormal rhythms were noted on telemetry. Your echocardiogram was normal. Please follow up with your PCP at the appointment above. Please also follow up with cardiology - call the number above to arrange a follow up appointment. Kind regards, Dr Salomón Akers Pending Studies at Discharge: No Stand-Alone Forms: My [facility], Smoking Cessation Medications and DC Order Prescriptions: New prochlorperazine maleate 10 mg tablet 10 mg PO QID PRN (Reason: nausea and vomiting) Qty: 14 RF: 0 Continued famotidine 20 mg Tablet 20 mg PO DAILY PRN (Reason: Gi Upset) RF: 0 Ocrevus 30 mg/mL Solution 30 mg IV Q6M RF: 0 Discharge Orders: Discharge Order (Routine); Ordered 07/13/19 Ordered By: Salomón Akers Admission Data Admit Date/Time: 07/12/19 20:12 Attending Provider: Salomón Akers Admit Provider: Elizabeht Romero Primary Care Provider: Perfecto Anderson Other Providers: Elizabeth Romero ; Georges Hua Other Interventions: Discharge Summary Assessment (RN) Last Done: 07/13/19 17:32 DC Date/Time DO NOT enter until pt leaves facility: 07/13/19 17:45 Coding Level of Care Code 48990 OBS Care - Discharge Diagnoses Atypical chest pain R07.89 Gastroesophageal reflux disease K21.9 Esophagitis presence: without esophagitis Multiple sclerosis G35
== END 2019-07-13 17:45 | disposition home or self-care (01) ==
LOC: ED 11:56 → 2S 11:56 → SUATTDRO 20:12 → 2S 21:06